=== PATIENT | male | born 2000 | race Caucasian/White ===

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

== ENCOUNTER 2023-02-21 07:37 | Emergency (ER) | payer BC, MEDICAID ==
[2023-02-21] MEDS ORDERED: Acetaminophen 500 MG Tab PO ONE (07:54)
[2023-02-21] MEDS ORDERED: Ketorolac 30 MG/ML SDV IM ONE ×2 (08:21→08:50)
[2023-02-21 09:06] LABS: INFLUENZA A NAA NEGATIVE (NEGATIVE); INFLUENZA B NAA NEGATIVE (NEGATIVE); RESPIRATORY SYNCYTIAL VIR NAA NEGATIVE (NEGATIVE)
[2023-02-21 09:09] LABS: CORONAVIRUS COVID-19 NAA NEGATIVE (NEGATIVE)
== END 2023-02-21 09:27 | disposition home or self-care (01) ==
LOC: KA.ED 07:37
DX: J02.0 Streptococcal pharyngitis (principal); Z20.822 Contact with and (suspected) exposure to COVID-19
CPT/HCPCS: 0241U; 71045; 87651-QW; 96372; 99283; A9270-GY; J1885